=== PATIENT | female | born 1965 | race Two or more races ===

== ENCOUNTER 2017-05-15 12:08 | Emergency (ER) | payer OTHER ==
--- NOTE | 2017-05-15 12:38 | PDOC ---
History of Present Illness - General Stated Complaint: FALL Time Seen by Provider: 05/15/17 12:15 History Source: Patient Exam Limitations: No Limitations - History of Present Illness Initial Comments: This is a 51 YOF with h/o NIDDM and asthma who presents BIBA s/p GLF at about 11 :30 am today. She explains that she was walking on concrete/asphault when she tripped on a metal pole sticking out of the ground that had been cut too high from the level of the ground. She had no preceding symptoms and no LOC but she did hit many parts of the right side of her body including right head, shoulder , hip, and knee. She has pain up to 10/10 which she states is the worst in her right knee. She has been able to walk since the incident but this exacerbates her pain. She additionally has had nausea, mild lightheadedness, and SOB slightly increased from her baseline. She has taken no medications since the fall, and denies any chest pain, vision problems, balance problems, numbness, tingling, weakness, vomiting, or other recent illness lately. Past History - Past Medical History Allergies/Adverse Reactions: Allergies Allergy/AdvReac Type Severity Reaction Status Date / Time No Known Allergies Allergy Verified 08/01/15 09:41 Home Medications: Ambulatory Orders Albuterol Sulfate Inhaler - [Ventolin Hfa Inhaler -] 1 - 2 inh PO QID PRN Metformin HCl [Glucophage -] 500 mg PO DAILY #30 tablet 03/28/15 Tramadol HCl 50 mg PO QID PRN #20 tablet MDD 200 05/15/17 Asthma: Yes Diabetes: Yes - Suicide/Smoking/Psychosocial Hx Smoking History: Never smoked Have you smoked in the past 12 months: No Hx Alcohol Use: No Drug/Substance Use Hx: No Substance Use Type: None *Physical Exam - Physical Exam General Appearance: Yes: Nourished, Appropriately Dressed, Mild Distress, Obese , Other (Conversive [place]an-speaking female in mild distress and 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 negative: Scleral Icterus (R), Scleral Icterus (L), Nasal Congestion Neck: positive: Tender (lower cervical and upper thoracic ttp at the midline without stepoff or deformity, right lateral trapezius tenderness to palpation from upper cervical level to right shoulder), Trachea midline, Supple. negative : Rigid, Decreased range of motion Respiratory/Chest: positive: Lungs Clear, Normal Breath Sounds. negative: Chest Tender, Respiratory Distress, Crackles, Rhonchi, Stridor, Wheezing Cardiovascular: positive: Regular Rhythm, Regular Rate. negative: Edema, Murmur Gastrointestinal/Abdominal: positive: Normal Bowel Sounds, Soft. negative: Tender, Organomegaly, Pulsatile Mass, Guarding Musculoskeletal: positive: Normal Inspection, Muscle Spasm (diffuse right lateral trapezius), Vertebral Tenderness (upper thoracic). negative: CVA Tenderness, Decreased Range of Motion Extremity: positive: Normal Capillary Refill, Normal Inspection, Normal Range of Motion, Tender (right shoulder, right greater trochanter, right medial and posterior knee, and right midfoot ttp, no ttp 5th metatarsal or lateral or medial malleoli, gait not tested d/t pain), Pelvis Stable. negative: Cyanosis Integumentary: positive: Normal Color, Dry, Warm. 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 negative : EOM Palsy, Facial Droop, Numbness, Sensory Deficit, Confused, Disoriented Medical Decision Making - Medical Decision Making 51 YOF BIBA s/p mechanical GLF with pain along multiple right-sided joints and c -spine. No LOC but tearful with pain and appears very uncomfortable. On exam VS wnl but patient has multiple foci of ttp along right extremities, also midline C- and T-spine ttp. Ordered is one Percocet for pain, head and C-spine CT, XR R foot, ankle, knee, hip/pelvis, shoulder, t-spine. 05/15/17 15:[address], shoulder/T-spine/hip/pelvis/knee/ankle/foot right sided xrays show no acute changes. On radiology official readings we confirm that the patient's symptoms are all on the right extremities. Ordered is YONI wrap and crutches as well as 800 mg Motrin. The patient is appropriate for DC home with close OP follow up. She is E-Rx Tramadol and return precautions are discussed. *DC/Admit/Observation/Transfer Diagnosis at time of Disposition: Fall from ground level, Multiple contusions - Discharge Dispostion Disposition: HOME Condition at time of disposition: Stable Admit: No - Prescriptions Prescriptions: Tramadol HCl 50 mg PO QID PRN #20 tablet MDD 200 PRN Reason: Moderate Pain - Referrals Referrals: Jason Chin MD [Primary Care Provider] - - Patient Instructions Printed Discharge Instructions: DI for Knee Pain Additional Instructions: You were seen in the ER for a fall with pain on the right side of your body, right head, and right neck. We gave you a Percocet for pain and got CT scans of your head and neck, which were normal, and x-rays of your shoulder hip, knee, and ankle/foot. Everything was normal. We are sending a prescription for Tramadol to your pharmacy, so please take this medication following the bottle instructions. You should also take Motrin for pain and inflammation. You can use an YONI bandage to wrap the knee. Otherwise please rest, ice the area, and elevate the leg. Follow up with your primary doctor or return to the ER with any new symptoms like severe headache, vomiting, inability to walk despite pain medications, or other new symptoms. - Post Discharge Activity
[2017-05-15 13:01] VITALS: BP 126/62; PULSE 72; TEMP 98; BMI 43.0
--- NOTE | 2017-05-15 13:33 | PDOC ---
Attending Attestation - Resident Resident Name: LeungRyanne - ED Attending Attestation I have performed the following: I have examined & evaluated the patient, The case was reviewed & discussed with the resident, I agree w/resident's findings & plan, Exceptions are as noted - HPI HPI: 05/15/17 13:31 51-year-old female with mechanical trip and fall presents with diffuse right- sided body pain. Minor head injury without loss of consciousness, no sensory deficits. - Physicial Exam PE: 05/15/17 13:31 Vital signs normal. Lying comfortably in stretcher but difficult to examine overall because of subjective pain to her right upper and lower extremities No deformities or ecchymosis or swelling throughout, tenderness to palpation of the right shoulder, right hip, right knee, and right foot. Neurovascularly intact throughout, no joint effusions - Medical Decision Making 05/15/17 13:32 Patient seen and evaluated with the resident. I agree with the overall evaluation, assessment, and management with the following summary of visit: 51-year-old female with very clear trip and fall, fell to ground from standing. No obvious deformity or fracture/dislocation, rule out injuries with imaging. CT head/C-spine Shoulder/hip/knee/ankle evaluation Pain control Reassess and dispo
[2017-05-15] MEDS ORDERED: IBUPROFEN 400 MG TABLET (FP) PO ONE ×2 (16:17→16:36)
== END 2017-05-15 16:59 | disposition home or self-care (01) ==
LOC: JER 12:08
DX: T14.8XXA Other injury of unspecified body region, initial encounter (principal); W18.39XA Other fall on same level, initial encounter; Y93.89 Activity, other specified; Y92.410 Unspecified street and highway as the place of occurrence of the external cause; E11.9 Type 2 diabetes mellitus without complications; J45.909 Unspecified asthma, uncomplicated; Z79.84 Long term (current) use of oral hypoglycemic drugs
CPT/HCPCS: 70450-TC; 72070-TC; 72125-TC; 73030-TC-RT; 73523-TC; 73562-TC-RT; 73610-TC-RT; 73630-TC-RT; 99281-25

== ENCOUNTER 2017-06-09 10:18 | Emergency (ER) | payer OTHER ==
[2017-06-09 10:38] VITALS: BP 123/68; PULSE 83; TEMP 97; BMI 44.9
--- NOTE | 2017-06-09 11:16 | PDOC ---
History of Present Illness - General Chief Complaint: Pain Stated Complaint: RT KNEE PAIN Time Seen by Provider: 06/09/17 10:59 History Source: Patient Exam Limitations: No Limitations - History of Present Illness Initial Comments: 06/09/17 11:14 51 yr female with pain to right knee from a fall on 05/15/17 seen in ER at that time. Pt has been going to PT for the knee injury. Pt here today asking for a referral fro an orthopedist. Pt denies any new trauma. denies any changes in her pain. Lower Ext. Injury Location - Specific Injury Location Knees: right pain Past History - Past Medical History Allergies/Adverse Reactions: Allergies Allergy/AdvReac Type Severity Reaction Status Date / Time No Known Allergies Allergy Verified 06/09/17 10:38 Home Medications: Ambulatory Orders NK [No Known Home Medication] 06/09/17 Asthma: Yes COPD: No Diabetes: Yes - Suicide/Smoking/Psychosocial Hx Smoking History: Never smoked Have you smoked in the past 12 months: No Hx Alcohol Use: No Drug/Substance Use Hx: No Substance Use Type: None Review of Systems - Review of Systems Able to Perform ROS?: Yes Is the patient limited Surinamese proficient: No Constitutional: No: Symptoms Reported HEENTM: No: Symptoms Reported Respiratory: No: Symptoms reported Cardiac (ROS): No: Symptoms Reported ABD/GI: No: Symptoms Reported : No: Symptoms Reported Musculoskeletal: Yes: See HPI Integumentary: No: Symptoms Reported *Physical Exam - Vital Signs Last Vital Signs Temp Pulse Resp BP Pulse Ox 97 F L 83 18 123/68 94 L 06/09/17 10:31 06/09/17 10:31 06/09/17 10:31 06/09/17 10:31 06/09/17 10:31 - Physical Exam General Appearance: Yes: Nourished, Appropriately Dressed HEENT: positive: EOMI, JASON Neck: positive: Supple Respiratory/Chest: positive: Lungs Clear, Normal Breath Sounds Musculoskeletal: positive: Normal Inspection Extremity: positive: Normal Capillary Refill, Normal Inspection, Tender (lateral , medial right knee, no swelling no bony tenderness, limited ROM due to pain ) Integumentary: positive: Normal Color, Dry, Warm Neurologic: positive: Fully Oriented, Alert, Normal Mood/Affect, Normal Response , Motor Strength 5/5 Medical Decision Making - Medical Decision Making 06/09/17 11:22 cc: knee pain chronic after injury on 05/15/17 no changes in pain, pt needs a referral for an orthopedist pt on her way to Physical therapy stopped in ER to get orthopedist name pt denies any changes in her pain, no new trauma pt is ambulatory with her cane , which is baseline for the pt 06/09/17 11:25 *DC/Admit/Observation/Transfer Diagnosis at time of Disposition: Knee pain, chronic Qualifiers: Laterality: right Qualified Code(s): M25.561 - Pain in right knee - Discharge Dispostion Disposition: HOME Condition at time of disposition: Good - Referrals Referrals: Jason Chin MD [Primary Care Provider] - fEren Arechiga MD [Staff Physician] - William Rossi MD [Staff Physician] - - Patient Instructions Additional Instructions: follow with the orthopedist listed below continue your physical therapy as you have had for your knee injury/pain return to ER for any worsening or changing symptoms - Post Discharge Activity
== END 2017-06-09 11:29 | disposition home or self-care (01) ==
LOC: JERFT 10:18
DX: M25.561 Pain in right knee (principal)
CPT/HCPCS: 99281-25

== ENCOUNTER 2021-04-12 16:19 | Emergency (ER) | payer OTHER ==
[2021-04-12 16:38] VITALS: BP 114/68; PULSE 96; TEMP 98.6; BMI 41.5
[2021-04-12] MEDS ORDERED: DEXAMETHASONE SOD PHOSPHATE 10 MG/1 ML VIAL IM ONE (17:26)
[2021-04-12] MEDS: ALBUTEROL SO4 2.5/IPRATROPIUM 0.5 INH SOL 3 ML VIAL.NEB. NEB SCH ×4 (17:30→18:15)
[2021-04-12] MEDS ORDERED: ALBUTEROL SO4 2.5/IPRATROPIUM 0.5 INH SOL 3 ML VIAL.NEB. NEB ONE (17:42)
[2021-04-12] MEDS ORDERED: DEXAMETHASONE SOD PHOSPHATE 10 MG/1 ML VIAL ONE (17:43)
== END 2021-04-12 18:10 | disposition home or self-care (01) ==
LOC: JER 16:19
PROC: 3E0F7GC Introduction of Other Therapeutic Substance into Respiratory Tract, Via Natural or Artificial Opening (ICD-10-PCS; principal; 2021-04-12)
PROC: 3E0233Z Introduction of Anti-inflammatory into Muscle, Percutaneous Approach (ICD-10-PCS; 2021-04-12)
DX: J45.21 Mild intermittent asthma with (acute) exacerbation (principal)
CPT/HCPCS: 93005; 93010; 99284-25; J1100

== ENCOUNTER 2022-04-26 15:34 | Emergency (ER) | payer OTHER ==
[2022-04-26 16:06] VITALS: BP 151/64; PULSE 81; RESP 22; TEMP 97.9; BMI 36.6
== END 2022-04-26 19:33 | disposition home or self-care (01) ==
LOC: JER 15:34
DX: J98.01 Acute bronchospasm (principal)
CPT/HCPCS: 0241U-QW; 99283-25